=== PATIENT | female | born 1990 | race Caucasian/White ===

== ENCOUNTER 2025-03-09 12:35 | Emergency (ER) | payer SELFPAY ==
[2025-03-09 12:41] VITALS: BP 141/93
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
[2025-03-09 14:37] VITALS: BP 129/84
== END 2025-03-09 14:38 | disposition home or self-care (01) ==
LOC: EMR 12:35
PROVIDERS: EMERGENCY PHYSICIAN Emergency Medicine
DX: M54.6 Pain in thoracic spine (principal); R07.89 Other chest pain; V49.40XA Driver injured in collision with unspecified motor vehicles in traffic accident, initial encounter
CPT/HCPCS: 99283; 71046